=== PATIENT | male | born 1935 | race Caucasian/White ===

== ENCOUNTER 2017-07-29 06:10 | Emergency (ER) | payer OTHER ==
[2017-07-29] MEDS ORDERED: predniSONE 20 MG TAB ONE (06:39)
--- NOTE | 2017-07-29 06:46 | EDPHYS ---
Physician Documentation [facility] Name: Andrea Shelby Age: 81 yrs Sex: Male : 1935 Arrival Date: 07/29/2017 Time: 06:14 Bed 18 Private MD: Jameson Heller E ED Physician Kiko Mccrary HPI: 07/29 06:49 This 81 yrs old Male presents to ER via Ambulatory with complaints of ARMS gs SWELLING. 06:49 The patient's rash thought to be caused by Dermatitis. The rash is located on the right gs base of the skull, right arm and left arm. The rash can be described as crusted, macular. Onset: The symptoms/episode began/occurred 1 week(s) ago. Associated signs and symptoms: Pertinent positives: itching. Severity of symptoms: At their worst the symptoms were moderate in the emergency department the symptoms are unchanged. The patient has experienced similar episodes in the past, several times. Historical: - Allergies: 06:24 No Known Allergies; aa1 - PMHx: 06:24 Hypertension; aa1 - PSHx: 06:24 None; aa1 - Immunization history:: Flu vaccine is up to date. - Social history:: Smoking status: Patient/guardian denies using tobacco, never smoked. ROS: 06:49 All other systems are negative. gs Exam: 06:49 Head/Face: Normocephalic, atraumatic. Eyes: Pupils equal round and reactive to light, gs extra-ocular motions intact. Lids and lashes normal. Conjunctiva and sclera are non-icteric and not injected. Cornea within normal limits. Periorbital areas with no swelling, redness, or edema. ENT: Nares patent. No nasal discharge, no septal abnormalities noted. Tympanic membranes are normal and external auditory canals are clear. Oropharynx with no redness, swelling, or masses, exudates, or evidence of obstruction, uvula midline. Mucous membranes moist. Neck: Trachea midline, no thyromegaly or masses palpated, and no cervical lymphadenopathy. Supple, full range of motion without nuchal rigidity, or vertebral point tenderness. No Meningismus. Chest/axilla: Normal chest wall appearance and motion. Nontender with no deformity. No lesions are appreciated. Cardiovascular: Regular rate and rhythm with a normal S1 and S2. No gallops, murmurs, or rubs. Normal PMI, no JVD. No pulse deficits. Respiratory: Lungs have equal breath sounds bilaterally, clear to auscultation and percussion. No rales, rhonchi or wheezes noted. No increased work of breathing, no retractions or nasal flaring. Abdomen/GI: Soft, non-tender, with normal bowel sounds. No distension or tympany. No guarding or rebound. No evidence of tenderness throughout. Back: No spinal tenderness. No costovertebral tenderness. Full range of motion. 06:49 MS/ Extremity: Pulses equal, no cyanosis. Neurovascular intact. Full, normal range of motion. Neuro: Awake and alert, GCS 15, oriented to person, place, time, and situation. Cranial nerves II-XII grossly intact. Motor strength 5/5 in all extremities. Sensory grossly intact. Cerebellar exam normal. Normal gait. 06:49 Constitutional: The patient appears alert, awake. 06:49 Skin: rash can be described as erythematous, macular, contact dermatitis, on the left arm and right arm and scalp. Vital Signs: 06:24 BP 157 / 93; Pulse 65; Resp 18; Temp 97.7; Pulse Ox 97% on R/A; Weight 72.57 kg; Height aa1 5 ft. 8 in. (172.72 cm); Pain 0/10; 06:27 BP 157 / 93; Pulse 64; Resp 14; Pulse Ox 97% ; bp 06:24 Body Mass Index 24.33 (72.57 kg, 172.72 cm) aa1 MDM: 06:34 Patient medically screened. 06:49 Differential diagnosis: allergic reaction, contact derm. Data reviewed: vital signs, nurses notes. Response to treatment: the patient's symptoms have mildly improved after treatment. Administered Medications: 06:42 Drug: predniSONE 40 mg Route: PO; bp 06:42 Follow up: Response: No adverse reaction bp Disposition: 07/29/17 06:45 Discharged to Home. Impression: Irritant contact dermatitis. - Condition is Stable. - Discharge Instructions: Contact Dermatitis. - Prescriptions for Prednisone 20 mg Oral Tablet - take 1 tablet by ORAL route once daily for 5 days; 5 tablet. Zyrtec 10 mg Oral Tablet - take 1 tablet by ORAL route once daily As needed; 20 tablet. Triamcinolone Acetonide 0.5 % Topical Cream - apply 1 application by TOPICAL route 2 times per day As needed; 60 gram. - Medication Reconciliation Form, Thank You Letter, Antibiotic Education, Prescription Opioid Use form. - Follow up: Private Physician; When: 2 - 3 days; Reason: Re-evaluation by your physician. Signatures: Renata Shaw RN RN aa1 Kiko Mccrary MD MD gs Preston Macias RN RN bp Corrections: (The following items were deleted from the chart) 07:00 06:45 07/29/2017 06:45 Discharged to Home. Impression: Irritant contact dermatitis. bp Condition is Stable. Forms are Medication Reconciliation Form, Thank You Letter, Antibiotic Education, Prescription Opioid Use. Follow up: Private Physician; When: 2 - 3 days; Reason: Re-evaluation by your physician. gs
--- NOTE | 2017-07-29 06:46 | ER ---
Nurse's Notes [facility] Name: Andrea Shelby Age: 81 yrs Sex: Male : 1935 Arrival Date: 07/29/2017 Time: 06:14 Bed 18 Private MD: Jameson Heller E Diagnosis: Irritant contact dermatitis Presentation: 07/29 06:22 Presenting complaint: Patient states: redness, swelling and itching to BUE x 2 days. aa1 Transition of care: patient was not received from another setting of care. Onset of symptoms was July 27, 2017. Initial Sepsis Screen: Does the patient meet any 2 criteria? No. Patient's initial sepsis screen is negative. Does the patient have a suspected source of infection? No. Patient's initial sepsis screen is negative. Care prior to arrival: None. 06:22 Method Of Arrival: Ambulatory aa1 06:22 Acuity: BRANDO 4 aa1 Historical: - Allergies: 06:24 No Known Allergies; aa1 - PMHx: 06:24 Hypertension; aa1 - PSHx: 06:24 None; aa1 - Immunization history:: Flu vaccine is up to date. - Social history:: Smoking status: Patient/guardian denies using tobacco, never smoked. Screenin:32 Abuse screen: Denies threats or abuse. Denies injuries from another. Nutritional bp screening: No deficits noted. Tuberculosis screening: No symptoms or risk factors identified. Fall Risk None identified. Assessment: 06:27 General: Appears in no apparent distress. uncomfortable, Behavior is calm, cooperative, bp appropriate for age. Pain: Denies pain. Neuro: Level of Consciousness is awake, alert, obeys commands, Oriented to person, place, time, situation, Appropriate for age. Cardiovascular: No deficits noted. Respiratory: Airway is patent Respiratory effort is even, unlabored, Respiratory pattern is regular, symmetrical. GI: No signs and/or symptoms were reported involving the gastrointestinal system. : No signs and/or symptoms were reported regarding the genitourinary system. EENT: No deficits noted. Derm: Rash noted that is itchy, red, raised. Musculoskeletal: Circulation, motion, and sensation intact. Range of motion: intact in all extremities. 06:59 Reassessment: PT D/C HOME AMBULATORY, DX WITH CONTACT DERMATITIS. bp Vital Signs: 06:24 BP 157 / 93; Pulse 65; Resp 18; Temp 97.7; Pulse Ox 97% on R/A; Weight 72.57 kg; Height aa1 5 ft. 8 in. (172.72 cm); Pain 0/10; 06:27 BP 157 / 93; Pulse 64; Resp 14; Pulse Ox 97% ; bp 06:24 Body Mass Index 24.33 (72.57 kg, 172.72 cm) aa1 ED Course: 06:14 Patient arrived in ED. es 06:15 Jameson Heller MD is Private Physician. es 06:18 Kiko Mccrary MD is Attending Physician. gs 06:23 Triage completed. aa1 06:24 Arm band placed on right wrist. Patient placed in an exam room, on a stretcher. aa1 06:27 Preston Macias, RN is Primary Nurse. bp 06:32 Patient has correct armband on for positive identification. bp 06:59 No provider procedures requiring assistance completed. Patient did not have IV access bp during this emergency room visit. Administered Medications: 06:42 Drug: predniSONE 40 mg Route: PO; bp 06:42 Follow up: Response: No adverse reaction bp Outcome: 06:45 Discharge ordered by . gs 06:59 Discharged to home ambulatory. bp 06:59 Condition: stable 06:59 Discharge instructions given to patient, Instructed on discharge instructions, follow up and referral plans. medication usage, Demonstrated understanding of instructions, follow-up care, medications, Prescriptions given X 3. 07:00 Patient left the ED. bp Signatures: Renata Shaw RN RN aa1 Cristina Perla Kiko Mccrary MD MD Preston Macias, RN RN bp
== END 2017-07-29 07:00 | disposition home or self-care (01) ==
LOC: ER 06:10
DX: L24.9 Irritant contact dermatitis, unspecified cause (principal); I10 Essential (primary) hypertension
CPT/HCPCS: 99283; J7512

== ENCOUNTER 2017-11-27 13:02 | Emergency (ER) | payer OTHER ==
--- NOTE | 2017-11-27 14:32 | RAD REPORT ---
EXAM DESCRIPTION: RAD - Chest Single View - 11/27/2017 2:26 pm CLINICAL HISTORY: COUGH Chest pain. COMPARISON: No comparisons FINDINGS: Portable technique limits examination quality. A small ill-defined infiltrate is suspected left lung base suggesting pneumonia. Trace left pleural f luid is present. The heart is normal in size. No displaced fractures. IMPRESSION: Left lower lobe pneumonia.
--- NOTE | 2017-11-27 14:38 | RAD REPORT ---
EXAM DESCRIPTION: CT - Head Brain Wo Cont - 11/27/2017 2:30 pm CLINICAL HISTORY: Fever;Headache COMPARISON: No comparisons TECHNIQUE: All CT scans are performed using dose optimization technique as appropriate and may inclu de automated exposure control or mA/KV adjustment according to patient size. FINDINGS: No intracranial hemorrhage, hydrocephalus or extra-axial fluid collection.Mild generalized brain atrophy is present with mild periventricular and deep white matter chronic microvascular ische gina changes.No areas of brain edema or evidence of midline shift. The paranasal sinuses and mastoids are clear. The calvarium is intact. IMPRESSION: No acute intracranial abnormality.
[2017-11-27] MEDS ORDERED: NA CHLORIDE 0.9% 1,000 ML ONE (14:40)
[2017-11-27 15:12] LABS: Absolute Monocytes 1.2 K/uL (0.1-1.3); Absolute Neutrophil 8.5 K/uL (1.8-8.0); Basophils % 0.1 % (0-1.3); Lymphocytes % 9.2 % (15.3-44.8); MCH 33.4 pg (27.0-35.0); MCV 96.9 fL (80-100); MPV 10.1 fL (7.6-11.3); Monocytes % 11.3 % (3.3-12.3); RBC Red Blood Cell Count 4.23 M/uL (4.33-5.43)
[2017-11-27 15:23] LABS: Urine Blood NEGATIVE (NEG); Urine Glucose NEGATIVE (NEG); Urine Protein NEGATIVE (NEG); Urine pH 5.5 (5.0-7.0)
[2017-11-27 15:29] LABS: Protime INR 1.08
[2017-11-27 15:31] LABS: ALT/SGPT 18 U/L (12-78); AST/SGOT 20 U/L (15-37); Albumin 3.3 g/dL (3.4-5.0); Alkaline Phosphatase 70 U/L (45-117); BUN Blood Urea Nitrogen 13 mg/dL (7-18); Bicarbonate 25 mmol/L (21-32); Bilirubin Direct 0.4 mg/dL (0-0.2); CKMB Creatine Kinase MB < 1.0 ng/mL (0.3-3.6); Creatine Phosphokinase 227 U/L (39-308); Glucose Level 137 mg/dL (74-106); Lipase 89 U/L (73-393); Magnesium 2.4 mg/dL (1.8-2.4); NT PRO-BNP 439 pg/mL (<450); Potassium 3.9 mmol/L (3.5-5.1); Protein, Total 7.2 g/dL (6.4-8.2); Sodium Level 132 mmol/L (136-145); Troponin (Emerg Dept Use Only) < 0.02 ng/mL (0.0-0.045)
[2017-11-27] MEDS ORDERED: AZITHROMYCIN 500 MG/250 ML BAG ONE (16:44)
[2017-11-27] MEDS ORDERED: AZITHROMYCIN IV 500 MG in NA CHLORIDE 0.9% 250 ML IVPB ONE (17:00)
[2017-11-27] MEDS ORDERED: CEFTRIAXONE/SWI 2gm 2 GM/20 ML SYR IVP ONE (17:00)
--- NOTE | 2017-11-27 17:25 | ER ---
Nurse's Notes [facility] Name: Andrea Shelby Age: 81 yrs Sex: Male : 1935 Arrival Date: 11/27/2017 Time: 13:03 Bed 5 Private MD: Jameson Heller E Diagnosis: Headache;Fever, unspecified;Pneumonia due to other specified bacteria Presentation: 11/27 13:26 Presenting complaint: Patient states: has had sinus headache, fever, nausea all iw weekend, today temp was up to 101.7, took ibuprofen an hour ago, denies cough, denies vomiting or diarrhea, no abd pain, no pain with urination, mild sore throat. Transition of care: patient was not received from another setting of care. Onset of symptoms was November 24, 2017. Risk Assessment: Do you want to hurt yourself or someone else? Patient reports no desire to harm self or others. Initial Sepsis Screen: Does the patient meet any 2 criteria? No. Patient's initial sepsis screen is negative. Does the patient have a suspected source of infection? No. Patient's initial sepsis screen is negative. Care prior to arrival: Medication(s) given: Motrin. 13:26 Method Of Arrival: Ambulatory iw 13:26 Acuity: BRANDO 3 iw Historical: - Allergies: 13:28 NKA; iw - Home Meds: 13:30 tamsulosin 0.4 mg oral cp24 1 cap once daily [Active]; Zocor Oral once daily [Active]; iw - PMHx: 13:28 Hypertension; iw - PSHx: 13:30 skin cancer removal from face; iw - Immunization history:: Adult Immunizations up to date. - Social history:: Smoking status: Patient/guardian denies using tobacco. - Ebola Screening: : Patient negative for fever greater than or equal to 101.5 degrees Fahrenheit, and additional compatible Ebola Virus Disease symptoms Patient denies exposure to infectious person Patient denies travel to an Ebola-affected area in the 21 days before illness onset No symptoms or risks identified at this time. - Family history:: not pertinent. Screenin:47 Abuse screen: Denies threats or abuse. Denies injuries from another. Nutritional ss screening: No deficits noted. Tuberculosis screening: Never had TB. Fall Risk None identified. Assessment: 13:47 General: Appears in no apparent distress. comfortable, Behavior is calm, cooperative, ss Reports chills for 12-24 hours, fever for 12-24 hours, feeling ill for 2-3 days, fatigue for 2-3 days. Pain: Complains of pain in generalized headache. 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 Cardiovascular: Heart tones S1 S2 present Capillary refill < 3 seconds is brisk in bilateral fingers Patient's skin is warm and dry. Respiratory: Airway is patent Trachea midline Respiratory effort is even, unlabored, Respiratory pattern is regular, symmetrical. Respiratory: Breath sounds are clear bilaterally. Denies cough, shortness of breath pain with respiration, pain with cough, pain with movement. GI: Bowel sounds present X 4 quads. Patient currently denies abdominal pain, diarrhea, nausea, tolerance of food. : Reports mild burning with urination. Pt reports that when he doesn't take one of his medications that the burning gets worse. EENT: Nares are clear Oral mucosa is moist. Derm: Skin is intact, is healthy with good turgor, Skin is dry, Skin is pink, warm \T\ dry. normal. Musculoskeletal: Circulation, motion, and sensation intact. Range of motion: intact in all extremities, Swelling absent. 16:27 Reassessment: Dr. Ferreira at bedside to perform initial assessment. Family at bedside. ss NAD at this time. Call light within reach . 17:31 Reassessment: Patient appears in no apparent distress at this time. Patient and/or ss family updated on plan of care and expected duration. Pain level reassessed. Patient is alert, oriented x 3, equal unlabored respirations, skin warm/dry/pink. Patient up for discharge. Awaiting for antibiotics to infuse prior to discharge as ordered. Patient denies pain at this time. Patient states feeling better. Patient states symptoms have improved. Vital Signs: 13:28 BP 158 / 88; Pulse 91; Resp 16 S; Temp 99.4(O); Pulse Ox 96% on R/A; Pain 5/10; iw 14:15 BP 140 / 81; Pulse 86; Resp 16; Pulse Ox 96% ; sv 15:45 BP 129 / 75; Pulse 81; Resp 18; sv 17:59 BP 121 / 74; Pulse 85; Resp 17; Temp 99.4(O); Pulse Ox 97% on R/A; Pain 2/10; ss ED Course: 13:03 Patient arrived in ED. sb2 13:03 Jameson Heller MD is Private Physician. sb2 13:28 Triage completed. iw 13:28 Arm band placed on. iw 13:37 Baljeet Ferreira MD is Attending Physician. hazel 13:39 EKG done, by diagnostic technologist. reviewed by Baljeet Ferreira MD. sm3 13:47 Patient has correct armband on for positive identification. Bed in low position. Call ss light in reach. 14:26 XRAY Chest (1 view) In Process Unspecified. EDMS 14:30 CT Head Brain wo Cont In Process Unspecified. EDMS 14:45 Denice Wright, NADINE is Primary Nurse. ss 17:11 Jameson Heller MD is Referral Physician. hazel 18:06 No provider procedures requiring assistance completed. IV discontinued, intact, ss bleeding controlled, No redness/swelling at site. Pressure dressing applied. Administered Medications: 14:46 Drug: NS 0.9% 1000 ml Route: IV; Rate: 1 bolus; Site: right antecubital; ss 15:50 Follow up: IV Status: Completed infusion; IV Intake: 1000ml ss 16:42 Drug: Zithromax 500 mg Route: IVPB; Infused Over: 1 hrs; Site: right antecubital; ss 17:57 Follow up: IV Status: Completed infusion; IV Intake: 250ml ss 16:58 Not Given (Other Intervention Used): Rocephin - (cefTRIAXone) 2 grams IVPB once over 30 ss mins; (mix in 100 mL NS) 17:57 Drug: Rocephin 2 grams Route: IV; Rate: calculated rate; Site: right antecubital; ss 18:06 Follow up: IV Status: Completed infusion ss 18:06 Drug: Tylenol 650 mg Route: PO; ss 18:06 Follow up: Response: Medication administered at discharge. ss Intake: 15:50 IV: 1000ml; Total: 1000ml. ss 17:57 IV: 250ml; Total: 1250ml. ss Outcome: 17:11 Discharge ordered by . hazel 18:06 Discharged to home ambulatory, with family. ss 18:06 Condition: improved 18:06 Discharge instructions given to patient, family, Instructed on discharge instructions, follow up and referral plans. medication usage, Demonstrated understanding of instructions, follow-up care, medications, Prescriptions given X 1. 18:07 Patient left the ED. ss Signatures: Dispatcher [employer] Jovanna Guido, RN Baljeet Loreod MD MD cha Williams, Irene, RN RN iw Smirch, Shelby, RN RN ss Billeau, Sheri 2 Susana Watson 3
--- NOTE | 2017-11-27 17:26 | EDPHYS ---
Physician Documentation [facility] Name: Andrea Shelby Age: 81 yrs Sex: Male : 1935 Arrival Date: 11/27/2017 Time: 13:03 Bed 5 Private MD: Jameson Heller E ED Physician Baljeet Ferreira HPI: 11/27 16:33 This 81 yrs old Male presents to ER via Ambulatory with complaints of hazel Headache, Fever. 16:33 The patient complains of pain to the forehead, left frontal area and right frontal hazel area. The patient describes the headache as aching, constant. Onset: The symptoms/episode began/occurred 3 day(s) ago. Associated signs and symptoms: The patient has no apparent associated signs or symptoms. Severity of symptoms: At its worst the pain was mild, in the emergency department the pain is unchanged. Headache History: The patient has had previous headaches and this one is similar to previous episodes. The symptoms are alleviated by remaining still. The patient has not experienced similar symptoms in the past. Historical: - Allergies: 13:28 NKA; iw - Home Meds: 13:30 tamsulosin 0.4 mg oral cp24 1 cap once daily [Active]; Zocor Oral once daily [Active]; iw - PMHx: 13:28 Hypertension; iw - PSHx: 13:30 skin cancer removal from face; iw - Immunization history:: Adult Immunizations up to date. - Social history:: Smoking status: Patient/guardian denies using tobacco. - Ebola Screening: : Patient negative for fever greater than or equal to 101.5 degrees Fahrenheit, and additional compatible Ebola Virus Disease symptoms Patient denies exposure to infectious person Patient denies travel to an Ebola-affected area in the 21 days before illness onset No symptoms or risks identified at this time. - Family history:: not pertinent. ROS: 16:33 Constitutional: Negative for fever, chills, and weight loss, Eyes: Negative for injury, hazel pain, redness, and discharge, ENT: Negative for injury, pain, and discharge, Neck: Negative for injury, pain, and swelling, Cardiovascular: Negative for chest pain, palpitations, and edema, Abdomen/GI: Negative for abdominal pain, nausea, vomiting, diarrhea, and constipation, Back: Negative for injury and pain, : Negative for injury, bleeding, discharge, and swelling, MS/Extremity: Negative for injury and deformity, Skin: Negative for injury, rash, and discoloration, Psych: Negative for depression, anxiety, suicide ideation, homicidal ideation, and hallucinations, Allergy/Immunology: Negative for hives, rash, and allergies, Endocrine: Negative for neck swelling, polydipsia, polyuria, polyphagia, and marked weight changes. 16:33 Neuro: Positive for headache, weakness. Exam: 16:33 Head/Face: Normocephalic, atraumatic. Eyes: Pupils equal round and reactive to light, hazel extra-ocular motions intact. Lids and lashes normal. Conjunctiva and sclera are non-icteric and not injected. Cornea within normal limits. Periorbital areas with no swelling, redness, or edema. ENT: Nares patent. No nasal discharge, no septal abnormalities noted. Tympanic membranes are normal and external auditory canals are clear. Oropharynx with no redness, swelling, or masses, exudates, or evidence of obstruction, uvula midline. Mucous membranes moist. Neck: Trachea midline, no thyromegaly or masses palpated, and no cervical lymphadenopathy. Supple, full range of motion without nuchal rigidity, or vertebral point tenderness. No Meningismus. Chest/axilla: Normal chest wall appearance and motion. Nontender with no deformity. No lesions are appreciated. Cardiovascular: Regular rate and rhythm with a normal S1 and S2. No gallops, murmurs, or rubs. Normal PMI, no JVD. No pulse deficits. Abdomen/GI: Soft, non-tender, with normal bowel sounds. No distension or tympany. No guarding or rebound. No evidence of tenderness throughout. Back: No spinal tenderness. No costovertebral tenderness. Full range of motion. Male : Normal genitalia with no discharge or lesions. Skin: Warm, dry with normal turgor. Normal color with no rashes, no lesions, and no evidence of cellulitis. MS/ Extremity: Pulses equal, no cyanosis. Neurovascular intact. Full, normal range of motion. Neuro: Awake and alert, GCS 15, oriented to person, place, time, and situation. Cranial nerves II-XII grossly intact. Motor strength 5/5 in all extremities. Sensory grossly intact. Cerebellar exam normal. Normal gait. Psych: Awake, alert, with orientation to person, place and time. Behavior, mood, and affect are within normal limits. 16:33 Constitutional: The patient appears febrile. 16:33 Respiratory: the patient does not display signs of respiratory distress, Respirations: normal, no acute changes, Breath sounds: rhonchi, that are mild, Respiratory rate: 18 Vital Signs: 13:28 BP 158 / 88; Pulse 91; Resp 16 S; Temp 99.4(O); Pulse Ox 96% on R/A; Pain 5/10; iw 14:15 BP 140 / 81; Pulse 86; Resp 16; Pulse Ox 96% ; sv 15:45 BP 129 / 75; Pulse 81; Resp 18; sv 17:59 BP 121 / 74; Pulse 85; Resp 17; Temp 99.4(O); Pulse Ox 97% on R/A; Pain 2/10; ss MDM: 13:[address] [facility] 16:33 Data reviewed: vital signs, nurses notes, lab test result(s), EKG, radiologic studies, [facility] CT scan, plain films. 11/27 13:59 Order name: Basic Metabolic Panel; Complete Time: 16:[address] [facility] 11/27 13:59 Order name: CBC with Diff; Complete Time: 16:[address] [facility] 11/27 13:59 Order name: Ckmb; Complete Time: 16:[address] [facility] 11/27 13:59 Order name: CPK; Complete Time: 16:[address] [facility] 11/27 13:59 Order name: LFT's; Complete Time: 16:[address] [facility] 11/27 13:59 Order name: Magnesium; Complete Time: 16:[address] [facility] 11/27 13:59 Order name: NT PRO-BNP; Complete Time: 16:[address] [facility] 11/27 13:59 Order name: PT-INR; Complete Time: 16:[address] [facility] 11/27 13:59 Order name: Ptt, Activated; Complete Time: 16:[address] [facility] 11/27 13:59 Order name: Troponin (emerg Dept Use Only); Complete Time: 16:[address] [facility] 11/27 13:59 Order name: Lipase; Complete Time: 16:[address] [facility] 11/27 13:59 Order name: Blood Culture Adult (2) [facility] 11/27 13:59 Order name: Procalcitonin [facility] 11/27 13:59 Order name: Lactate; Complete Time: 16:[address] [facility] 11/27 13:59 Order name: XRAY Chest (1 view); Complete Time: 16:[address] [facility] 11/27 13:59 Order name: EKG; Complete Time: 14:[address] [facility] 11/27 13:59 Order name: Cardiac monitoring; Complete Time: 14:[address] [facility] 11/27 13:59 Order name: EKG - Nurse/Tech; Complete Time: 14:[address] [facility] 11/27 13:59 Order name: IV Saline Lock; Complete Time: 14:[address] [facility] 11/27 13:59 Order name: Labs collected and sent; Complete Time: 14:[address] [facility] 11/27 13:59 Order name: O2 Per Protocol; Complete Time: 14:[address] [facility] 11/27 13:59 Order name: Urine Culture [facility] 11/27 13:59 Order name: CT Head Brain wo Cont; Complete Time: 16:[address] [facility] 11/27 15:11 Order name: Urine Dipstick--Ancillary (enter results); Complete Time: 16:32 11/27 16:32 Order name: Influenza Screen (a \T\ B) [facility] 11/27 13:59 Order name: O2 Sat Monitoring; Complete Time: 14:[address] [facility] 11/27 13:59 Order name: Urine Dipstick-Ancillary (obtain specimen); Complete Time: 15:[address] [facility] Administered Medications: 14:46 Drug: NS 0.9% 1000 ml Route: IV; Rate: 1 bolus; Site: right antecubital; ss 15:50 Follow up: IV Status: Completed infusion; IV Intake: 1000ml 16:42 Drug: Zithromax 500 mg Route: IVPB; Infused Over: 1 hrs; Site: right antecubital; ss 17:57 Follow up: IV Status: Completed infusion; IV Intake: 250ml 16:58 Not Given (Other Intervention Used): Rocephin - (cefTRIAXone) 2 grams IVPB once over 30 ss mins; (mix in 100 mL NS) 17:57 Drug: Rocephin 2 grams Route: IV; Rate: calculated rate; Site: right antecubital; ss 18:06 Follow up: IV Status: Completed infusion ss 18:06 Drug: Tylenol 650 mg Route: PO; ss 18:06 Follow up: Response: Medication administered at discharge. Disposition: 11/27/17 17:11 Discharged to Home. Impression: Headache, Fever, unspecified, Pneumonia due to other specified bacteria. - Condition is Stable. - Discharge Instructions: Fever, Adult, Community-Acquired Pneumonia, Adult, [id number], Fever, Adult, [id number]. - Prescriptions for Zithromax 500 mg Oral Tablet - take 1 tablet by ORAL route once daily for 5 days; 5 tablet. - Medication Reconciliation Form, Thank You Letter, Antibiotic Education, Prescription Opioid Use form. - Follow up: Jameson Heller; When: 2 - 3 days; Reason: Recheck today's complaints, Continuance of care, Re-evaluation by your physician. - Problem is new. - Symptoms have improved. Signatures: Dispatcher [employer] EDKY Baljeet Ferreira MD MD cha Williams, Irene, RN RN iw Denice Wright RN RN ss Corrections: (The following items were deleted from the chart) 18:07 17:11 11/27/2017 17:11 Discharged to Home. Impression: Headache; Fever, unspecified; ss Pneumonia due to other specified bacteria. Condition is Stable. Discharge Instructions: Fever, Adult, Community-Acquired Pneumonia, Adult, [id number], Fever, Adult, Bzan-[id number]. Prescriptions for Zithromax 500 mg Oral Tablet - take 1 tablet by ORAL route once daily for 5 days; 5 tablet. and Forms are Medication Reconciliation Form, Thank You Letter, Antibiotic Education, Prescription Opioid Use. Follow up: Jameson Heller; When: 2 - 3 days; Reason: Recheck today's complaints, Continuance of care, Re-evaluation by your physician. Problem is new. Symptoms have improved. hazel
[2017-11-27] MEDS ORDERED: ACETAMINOPHEN 325 MG TABLET ONE (18:07)
--- NOTE | 2017-11-27 19:24 | EKG ---
Test Date: 2017-11-27 Test Time: 13:33:22 [employer] Supervisor: MANISHA MEASUREMENT RESULTS: Intervals: Rate: 91 OR: 142 QRSD: 132 QT: 384 QTc: 472 [place]: P: 26 OR: 142 QRS: -37 T: -4 INTERPRETIVE STATEMENTS: Normal sinus rhythm Left axis deviation Right bundle branch block Abnormal ECG No previous ECG available for comparison Electronically Signed On 11-27-17 19:22:44 CDT by Raul Olivier
== END 2017-11-27 18:07 | disposition home or self-care (01) ==
LOC: ER 13:02
DX: J15.8 Pneumonia due to other specified bacteria (principal); R50.9 Fever, unspecified; I10 Essential (primary) hypertension; Z85.828 Personal history of other malignant neoplasm of skin
CPT/HCPCS: 36415; 70450; 71045; 80048; 80076; 81003; 82550; 82553; 83605; 83690; 83735; 83880; 84145; 84484; 85025; 85610; 85730; 87040 ×2; 87086; 87088; 87804 ×2; 93005; 96361; 96365; 96375; 99284; J0456; J0696; J7030

== ENCOUNTER 2019-12-04 09:09 | Emergency (ER) | payer OTHER ==
[2019-12-04 09:34] LABS: Absolute Lymphocytes (CBC) 1.8 K/uL (0.7-4.9); Basophils % 0.2 % (0-1.3); Hematocrit 43.3 % (39.6-49.0); Lymphocytes % 16.1 % (15.3-44.8); MPV 9.5 fL (7.6-11.3); RBC Red Blood Cell Count 4.49 M/uL (4.33-5.43)
[2019-12-04 09:53] LABS: Albumin 3.6 g/dL (3.4-5.0); Bilirubin Direct 0.4 mg/dL (0-0.2); Potassium 3.8 mmol/L (3.5-5.1); Protein, Total 7.1 g/dL (6.4-8.2)
--- NOTE | 2019-12-04 10:26 | RAD REPORT ---
EXAM DESCRIPTION: CT - Abdomen Pelvis W Contrast - 12/04/2019 10:12 am CLINICAL HISTORY: Abdominal pain COMPARISON: none. TECHNIQUE: Computed axial tomography of the abdomen pelvis was obtained. 100 cc Isovue-300 was admin istered intravenously. Oral contrast was not requested which limits evaluation of bowel. All CT scans are performed using dose optimization technique as appropriate and may include automated exposure control or mA/KV adjustment according to patient size. FINDINGS: Fatty liver. Cholelithiasis without gallbladder wall thickening The spleen, pancreas, adrenals and left kidney are unremarkable. Right renal cortical thinning perhaps secondary prior inflammation Diverticulosis without evidence of diverticulitis. Small inguinal hernias contain fat. An abnormal ap pendix is not visualized. Atherosclerotic disease. The prostate gland is moderately enlarged Mild posterior subluxation of L1 on L2 with subchondral sclerosis and vacuum phenomena. Spondylosis i nvolves lumbar spine resulting in spinal stenosis IMPRESSION: Cholelithiasis without cholecystitis
--- NOTE | 2019-12-04 10:46 | EDPHYS ---
Physician Documentation [facility] Name: Andrea Shelby Age: 83 yrs Sex: Male : 1935 Arrival Date: 12/04/2019 Time: 09:11 Bed 6 Private MD: ED Physician Oliver Andrade HPI: 12/03 09:35 This 83 yrs old Male presents to ER via Ambulatory with complaints of kdr Abdominal Pain. 09:35 The patient presents with abdominal pain in the epigastric area, in the upper abdomen. kdr Onset: The symptoms/episode began/occurred yesterday. The symptoms do not radiate. Associated signs and symptoms: Pertinent positives: nausea, Pertinent negatives: anorexia, blood in stools, chest pain, constipation, diarrhea, dysuria, fever, headache, hematuria, palpitations, shortness of breath, testicular pain, vomiting, vomiting blood. The symptoms are described as achy, burning, crampy, steady. Modifying factors: The symptoms are alleviated by nothing, the symptoms are aggravated by drinking. Severity of pain: At its worst the pain was a 10 / 10 last night, in the emergency department the pain has improved is a 1 / 10. The patient has not experienced similar symptoms in the past. The patient has not recently seen a physician. Historical: - Allergies: 09:21 NKA; ph - Home Meds: 09:21 tamsulosin 0.4 mg Oral cp24 1 cap once daily [Active]; ph - PMHx: 09:21 Hypertension; ph - PSHx: 09:21 skin cancer removal from face; ph - Immunization history:: Adult Immunizations up to date, Pneumococcal vaccine is up to date, Flu vaccine is up to date. - Social history:: Smoking status: Patient denies any tobacco usage or history of. Patient/guardian denies using alcohol. ROS: 09:35 Constitutional: Negative for fever, chills, and weight loss, Eyes: Negative for injury, kdr pain, redness, and discharge, ENT: Negative for injury, pain, and discharge, Neck: Negative for injury, pain, and swelling, Cardiovascular: Negative for chest pain, palpitations, and edema, Respiratory: Negative for shortness of breath, cough, wheezing, and pleuritic chest pain, Back: Negative for injury and pain, : Negative for injury, bleeding, discharge, and swelling, MS/Extremity: Negative for injury and deformity, Skin: Negative for injury, rash, and discoloration, Neuro: Negative for headache, weakness, numbness, tingling, and seizure activity. Psych: Negative for depression, anxiety, suicide ideation, homicidal ideation, and hallucinations, Allergy/Immunology: Negative for hives, rash, and allergies, Endocrine: Negative for neck swelling, polydipsia, polyuria, polyphagia, and marked weight changes, Hematologic/Lymphatic: Negative for swollen nodes, abnormal bleeding, and unusual bruising. 09:35 Abdomen/GI: Positive for abdominal pain, nausea, Negative for abdominal cramps, abdominal distension, anorexia, dysphagia, hematemesis, black/tarry stool, rectal pain, rectal bleeding, bowel incontinence, flatulence. Exam: 09:35 Constitutional: This is a well developed, well nourished patient who is awake, alert, kdr and in no acute distress. Head/Face: Normocephalic, atraumatic. Eyes: Pupils equal round and reactive to light, extra-ocular motions intact. Lids and lashes normal. Conjunctiva and sclera are non-icteric and not injected. Cornea within normal limits. Periorbital areas with no swelling, redness, or edema. Neck: Trachea midline, no thyromegaly or masses palpated, and no cervical lymphadenopathy. Supple, full range of motion without nuchal rigidity, or vertebral point tenderness. No Meningismus. Chest/axilla: Normal chest wall appearance and motion. Nontender with no deformity. No lesions are appreciated. Cardiovascular: Regular rate and rhythm with a normal S1 and S2. No gallops, murmurs, or rubs. Normal PMI, no JVD. No pulse deficits. Respiratory: Lungs have equal breath sounds bilaterally, clear to auscultation and percussion. No rales, rhonchi or wheezes noted. No increased work of breathing, no retractions or nasal flaring. Back: No spinal tenderness. No costovertebral tenderness. Full range of motion. Skin: Warm, dry with normal turgor. Normal color with no rashes, no lesions, and no evidence of cellulitis. MS/ Extremity: Pulses equal, no cyanosis. Neurovascular intact. Full, normal range of motion. Neuro: Awake and alert, GCS 15, oriented to person, place, time, and situation. Cranial nerves II-XII grossly intact. Motor strength 5/5 in all extremities. Sensory grossly intact. Cerebellar exam normal. Normal gait. Psych: Awake, alert, with orientation to person, place and time. Behavior, mood, and affect are within normal limits. 09:35 Abdomen/GI: Inspection: abdomen appears normal, Bowel sounds: active, all quadrants, Palpation: nontender, mild abdominal tenderness, in the epigastric area, rebound tenderness, is not appreciated. 10:49 ECG was reviewed by the Attending Physician. kdr Vital Signs: 09:19 BP 175 / 88; Pulse 72; Resp 18; Temp 98.0; Pulse Ox 99% on R/A; Weight 68.95 kg; Height ph 5 ft. 11 in. (180.34 cm); 10:15 BP 154 / 84; Pulse 71; Resp 18; Pulse Ox 99% on R/A; ph 11:18 BP 148 / 76; Pulse 68; Resp 18; Temp 98.0; Pulse Ox 98% on R/A; Pain 3/10; ph 09:19 Body Mass Index 21.20 (68.95 kg, 180.34 cm) ph MDM: 09:35 Data reviewed: vital signs, nurses notes, lab test result(s), radiologic studies. kdr Counseling: I had a detailed discussion with the patient and/or guardian regarding: the historical points, exam findings, and any diagnostic results supporting the discharge/admit diagnosis, lab results, radiology results. 10:45 Patient medically screened. kdr 12/03 09:12 Order name: Basic Metabolic Panel; Complete Time: 10:43 kdr 12/03 09:12 Order name: CBC with Diff; Complete Time: 09:43 kdr 12/03 09:12 Order name: Hepatic Function; Complete Time: 10:43 kdr 12/03 09:12 Order name: Lipase; Complete Time: 10:43 kdr 12/03 09:43 Order name: Troponin (emerg Dept Use Only) kdr 12/03 09:43 Order name: Troponin (Emerg Dept Use Only); Complete Time: 10:43 EDMS 12/03 09:12 Order name: IV Saline Lock; Complete Time: 09:28 kdr 12/03 09:12 Order name: Labs collected and sent; Complete Time: : kdr 12/03 09:43 Order name: CT Abd/Pelvis - IV Contrast Only; Complete Time: 10:43 kdr 12/03 09:43 Order name: EKG - Nurse/Tech; Complete Time: 10:35 kdr EC:49 Rate is 70 beats/min. Rhythm is regular, Sinus Rhythm with Right bundle branch block. kdr Left axis deviation noted. LA interval is normal. QRS interval is normal. QT interval is normal. No Q waves. Clinical impression: NSR w/ Non-specific ST/T Changes. Administered Medications: No medications were administered Disposition: 12/04/19 10:45 Discharged to Home. Impression: Abdominal and pelvic pain, Cholelithiasis. - Condition is Stable. - Discharge Instructions: Abdominal Pain, Adult, [id number]. - Prescriptions for Bentyl 20 mg Oral Tablet - take 1 tablet by ORAL route every 6 hours As needed As needed for cramping; 20 tablet. Zofran 4 mg Oral Tablet - take 1 tablet by ORAL route every 4-6 hours As needed; 6 tablet. - Medication Reconciliation Form, Thank You Letter form. - Follow up: Private Physician; When: 2 - 3 days; Reason: If symptoms return, Further diagnostic work-up, Recheck today's complaints, Continuance of care, Re-evaluation by your physician. - Problem is new. - Symptoms have improved. Signatures: Dispatcher [employer] EDMS Oliver Andrade MD MD kdr Coral Morejon RN RN ph Corrections: (The following items were deleted from the chart) 10:46 10:45 12/04/2019 10:45 Discharged to Home. Impression: Abdominal and pelvic pain. kdr Condition is Stable. Forms are Medication Reconciliation Form, Thank You Letter, Antibiotic Education, Prescription Opioid Use. Follow up: Private Physician; When: 2 - 3 days; Reason: If symptoms return, Further diagnostic work-up, Recheck today's complaints, Continuance of care, Re-evaluation by your physician. Problem is new. Symptoms have improved. kdr 11:21 10:46 12/04/2019 10:45 Discharged to Home. Impression: Abdominal and pelvic pain; ph Cholelithiasis. Condition is Stable. Forms are Medication Reconciliation Form, Thank You Letter, Antibiotic Education, Prescription Opioid Use. Follow up: Private Physician; When: 2 - 3 days; Reason: If symptoms return, Further diagnostic work-up, Recheck today's complaints, Continuance of care, Re-evaluation by your physician. Problem is new. Symptoms have improved. kdr
--- NOTE | 2019-12-04 10:46 | ER ---
Nurse's Notes [facility] Name: Andrea Shelby Age: 83 yrs Sex: Male : 1935 Arrival Date: 12/04/2019 Time: 09:11 Bed 6 Private MD: Diagnosis: Abdominal and pelvic pain;Cholelithiasis Presentation: 12/03 09:19 Chief complaint: Patient states: Epigastric pain that began yesterday around noon, also ph reports nausea, denies V/D or fever, states, " The pain isn't terrible now but it kept me up all night.". Coronavirus screen: Client denies travel out of the [place] in the last 14 days. Ebola Screen: No symptoms or risks identified at this time. Initial Sepsis Screen: Does the patient meet any 2 criteria? No. Patient's initial sepsis screen is negative. Does the patient have a suspected source of infection? No. Patient's initial sepsis screen is negative. Risk Assessment: Do you want to hurt yourself or someone else? Patient reports no desire to harm self or others. Onset of symptoms was December 04, 2019. 09:19 Method Of Arrival: Ambulatory ph 09:19 Acuity: BRANDO 3 ph Historical: - Allergies: 09:21 NKA; ph - Home Meds: : tamsulosin 0.4 mg Oral cp24 1 cap once daily [Active]; ph - PMHx: 09:21 Hypertension; ph - PSHx: 09:21 skin cancer removal from face; ph - Immunization history:: Adult Immunizations up to date, Pneumococcal vaccine is up to date, Flu vaccine is up to date. - Social history:: Smoking status: Patient denies any tobacco usage or history of. Patient/guardian denies using alcohol. Screenin: Abuse screen: Denies threats or abuse. Denies injuries from another. Nutritional ph screening: No deficits noted. Tuberculosis screening: No symptoms or risk factors identified. Fall Risk None identified. Assessment: : General: Appears in no apparent distress. comfortable, slender, well groomed, Behavior ph is calm, cooperative, appropriate for age, Denies fever, feeling ill. Pain: Complains of pain in epigastric area Pain does not radiate. Pain began 12/02. Neuro: Neuro: Level of Consciousness is awake, alert, obeys commands, Oriented to person, place, time, situation. Cardiovascular: Capillary refill < 3 seconds in bilateral fingers Patient's skin is warm and dry. Respiratory: Airway is patent Respiratory effort is even, unlabored, Respiratory pattern is regular, symmetrical. GI: Abdomen is flat, non-distended, Reports upper abdominal pain, nausea, Patient currently denies constipation, diarrhea, vomiting. Derm: Skin is intact, is healthy with good turgor, Skin is pink, warm \\T\\ dry. Musculoskeletal: Circulation, motion, and sensation intact. Range of motion: intact in all extremities. 10:15 Reassessment: Patient appears in no apparent distress at this time. Patient and/or ph family updated on plan of care and expected duration. Pain level reassessed. Patient is alert, oriented x 3, equal unlabored respirations, skin warm/dry/pink. 11:20 Reassessment: Patient appears in no apparent distress at this time. Patient and/or ph family updated on plan of care and expected duration. Pain level reassessed. Patient is alert, oriented x 3, equal unlabored respirations, skin warm/dry/pink. Pt rates pain 3/10 and denies nausea at this time, d/c home w/ prescriptions. Vital Signs: 09:19 BP 175 / 88; Pulse 72; Resp 18; Temp 98.0; Pulse Ox 99% on R/A; Weight 68.95 kg; Height ph 5 ft. 11 in. (180.34 cm); 10:15 BP 154 / 84; Pulse 71; Resp 18; Pulse Ox 99% on R/A; ph 11:18 BP 148 / 76; Pulse 68; Resp 18; Temp 98.0; Pulse Ox 98% on R/A; Pain 3/10; ph 09:19 Body Mass Index 21.20 (68.95 kg, 180.34 cm) ph ED Course: 09:11 Patient arrived in ED. as 09:12 Oliver Andrade MD is Attending Physician. kdr 09:19 Coral Morejon, NADINE is Primary Nurse. ph 09:20 Triage completed. ph 09:21 Patient has correct armband on for positive identification. Placed in gown. Bed in low ph position. Call light in reach. Side rails up X 1. Pulse ox on. NIBP on. Door closed. Noise minimized. Warm blanket given. 09:22 Arm band placed on Patient placed in an exam room, on a stretcher. ph 09:24 Initial lab(s) drawn, by me, sent to lab. Inserted saline lock: 20 gauge in right 3 antecubital area, using aseptic technique. Blood collected. 10:12 CT Abd/Pelvis - IV Contrast Only In Process Unspecified. EDMS 10:26 EKG done, by ED staff, reviewed by Oliver Andrade MD. formerly [facility] 11:20 No provider procedures requiring assistance completed. IV discontinued, intact, ph bleeding controlled, No redness/swelling at site. Pressure dressing applied. Administered Medications: No medications were administered Outcome: 10:45 Discharge ordered by . kdr 11:21 Discharged to home ambulatory. ph 11:21 Condition: good 11:21 Discharge instructions given to patient, Instructed on discharge instructions, follow up and referral plans. medication usage, Demonstrated understanding of instructions, follow-up care, medications, Prescriptions given X 2. 11:21 Patient left the ED. ph Signatures: Dispatcher [employer] EDNC Oliver Andrade MD MD kdr Martinez, Amelia as Hall, Patricia, RN RN Yeny Rivera formerly [facility]
[2019-12-04 11:27] VITALS: TEMP 98
[2019-12-04 11:30] VITALS: BP 148/76; O2SAT 98
== END 2019-12-04 11:21 | disposition home or self-care (01) ==
LOC: ER 09:09
DX: K80.20 Calculus of gallbladder without cholecystitis without obstruction (principal); I10 Essential (primary) hypertension; Z85.828 Personal history of other malignant neoplasm of skin
CPT/HCPCS: 85025; 80048; 36415; 80076; 84484; 83690; 74177; Q9967; 93005

== ENCOUNTER 2020-07-27 06:05 | Emergency (ER) | payer OTHER ==
--- NOTE | 2020-07-27 09:15 | EDPHYS ---
Physician Documentation [facility] Name: Andrea Shelby Age: 84 yrs Sex: Male : 1935 Arrival Date: 07/27/2020 Time: 06:08 Bed 16 Private MD: Jameson Heller E ED Physician Ritika Duong HPI: 07/27 09:09 This 84 yrs old Male presents to ER via Ambulatory with complaints of Sore ma2 Throat. 09:09 Onset: The symptoms/episode began/occurred gradually, 2 day(s) ago. Severity of ma2 symptoms: At their worst the symptoms were mild, in the emergency department the symptoms are unchanged. The patient has experienced similar episodes in the past. Historical: - Allergies: 06:50 NKA; iw - PMHx: 06:50 Hypertension; iw - PSHx: 06:50 skin cancer removal from face; iw - Immunization history:: Client reports receiving the 2nd dose of the Covid vaccine. - Social history:: Smoking status: Patient denies any tobacco usage or history of. - Family history:: not pertinent. ROS: 09:09 Constitutional: Negative for fever, chills, and weight loss. ma2 09:09 All other systems are negative. Exam: 09:09 Constitutional: This is a well developed, well nourished patient who is awake, alert, ma2 and in no acute distress. Head/Face: Normocephalic, atraumatic. Eyes: Pupils equal round and reactive to light, extra-ocular motions intact. Lids and lashes normal. Conjunctiva and sclera are non-icteric and not injected. Cornea within normal limits. Periorbital areas with no swelling, redness, or edema. ENT: red oropharynx, otherwise Nares patent. No nasal discharge, no septal abnormalities noted. Tympanic membranes are normal and external auditory canals are clear. Oropharynx with no redness, swelling, or masses, exudates, or evidence of obstruction, uvula midline. Mucous membranes moist. Neck: Trachea midline, no thyromegaly or masses palpated, and no cervical lymphadenopathy. Supple, full range of motion without nuchal rigidity, or vertebral point tenderness. No Meningismus. Chest/axilla: Normal chest wall appearance and motion. Nontender with no deformity. No lesions are appreciated. Cardiovascular: Regular rate and rhythm with a normal S1 and S2. No gallops, murmurs, or rubs. Normal PMI, no JVD. No pulse deficits. Respiratory: Lungs have equal breath sounds bilaterally, clear to auscultation and percussion. No rales, rhonchi or wheezes noted. No increased work of breathing, no retractions or nasal flaring. Abdomen/GI: Soft, non-tender, with normal bowel sounds. No distension or tympany. No guarding or rebound. No evidence of tenderness throughout. Vital Signs: 06:48 BP 118 / 87; Pulse 99; Resp 18; Temp 98.6; Pulse Ox 98% ; Weight 68.04 kg; Height 5 ft. iw 9 in. (175.26 cm); 08:00 BP 146 / 90; Pulse 93; Resp 16; Pulse Ox 97% ; bp 06:48 Body Mass Index 22.15 (68.04 kg, 175.26 cm) iw MDM: 08:01 Patient medically screened. ma2 09:09 Differential diagnosis: Allergic rhinitis, pharyngitis, upper respiratory infection, ma2 viral syndrome. Data reviewed: vital signs, nurses notes. Counseling: I had a detailed discussion with the patient and/or guardian regarding: the historical points, exam findings, and any diagnostic results supporting the discharge/admit diagnosis, the presence of at least one elevated blood pressure reading (>120/80) during this emergency department visit, the need for outpatient follow up. Response to treatment: the patient's symptoms have markedly improved after treatment. 07/27 06:50 Order name: Strep; Complete Time: 07:53 iw 07/27 07:37 Order name: Throat Culture EDMS Administered Medications: No medications were administered Disposition: 07/27/20 09:15 Discharged to Home. Impression: Acute pharyngitis. - Condition is Stable. - Discharge Instructions: Pharyngitis. - Prescriptions for Zithromax Z- Charles 250 mg Oral Tablet - take 1 tablet by ORAL route as directed for 5 days Day 1 - take two (2) tablets one time. Day 2, 3, 4 , 5 take one (1) tablet once daily.; 6 tablet. Prednisone 20 mg Oral Tablet - take 2 tablet by ORAL route once daily for 5 days; 10 tablet. - Medication Reconciliation Form, Thank You Letter, Antibiotic Education, Prescription Opioid Use form. - Follow up: Private Physician; When: Tomorrow; Reason: Continuance of care. Signatures: Dispatcher [employer] Monie Vick RN Ritika Gonzalez MD MD ma2 Tatiana Hsieh RN RN tr6 Corrections: (The following items were deleted from the chart) 09:42 09:15 07/27/2020 09:15 Discharged to Home. Impression: Acute pharyngitis. Condition is tr6 Stable. Discharge Instructions: Pharyngitis. Prescriptions for Zithromax Z-Charles 250 mg Oral Tablet - take 1 tablet by ORAL route as directed for 5 days Day 1 - take two (2) tablets one time. Day 2, 3, 4 , 5 take one (1) tablet once daily.; 6 tablet, Prednisone 20 mg Oral Tablet - take 2 tablet by ORAL route once daily for 5 days; 10 tablet. and Forms are Medication Reconciliation Form, Thank You Letter, Antibiotic Education, Prescription Opioid Use. Follow up: Private Physician; When: Tomorrow; Reason: Continuance of care. ma2
--- NOTE | 2020-07-27 09:15 | ER ---
Nurse's Notes [facility] Name: Andrea Shelby Age: 84 yrs Sex: Male : 1935 Arrival Date: 07/27/2020 Time: 06:08 Bed 16 Private MD: Jameson Heller E Diagnosis: Acute pharyngitis Presentation: 07/27 06:48 Chief complaint: Patient states: has had sore throat, watery eyes, congestion, thought iw it was allergies but the Claritin isn't working. Coronavirus screen: Client presents with at least one sign or symptom that may indicate coronavirus-19. Ebola Screen: Patient negative for fever greater than or equal to 101.5 degrees Fahrenheit, and additional compatible Ebola Virus Disease symptoms Patient denies exposure to infectious person. Patient denies travel to an Ebola-affected area in the 21 days before illness onset. No symptoms or risks identified at this time. Initial Sepsis Screen: Does the patient meet any 2 criteria? No. Patient's initial sepsis screen is negative. Does the patient have a suspected source of infection? No. Patient's initial sepsis screen is negative. Risk Assessment: Do you want to hurt yourself or someone else? Patient reports no desire to harm self or others. Onset of symptoms was July 25, 2020. 06:48 Method Of Arrival: Ambulatory iw 06:48 Acuity: BRANDO 4 iw Triage Assessment: 08:00 General: Appears in no apparent distress. comfortable, slender, Behavior is calm, bp cooperative, appropriate for age. Pain: Denies pain. EENT: Reports SORE THROAT. Neuro: No deficits noted. Cardiovascular: No deficits noted. Respiratory: Airway is patent Respiratory pattern is regular. GI: No signs and/or symptoms were reported involving the gastrointestinal system. : No signs and/or symptoms were reported regarding the genitourinary system. Derm: No deficits noted. Musculoskeletal: No deficits noted. Historical: - Allergies: 06:50 NKA; iw - PMHx: 06:50 Hypertension; iw - PSHx: 06:50 skin cancer removal from face; iw - Immunization history:: Client reports receiving the 2nd dose of the Covid vaccine. - Social history:: Smoking status: Patient denies any tobacco usage or history of. - Family history:: not pertinent. Screenin:00 Abuse screen: Denies threats or abuse. Denies injuries from another. Nutritional bp screening: No deficits noted. Tuberculosis screening: No symptoms or risk factors identified. Fall Risk None identified. Assessment: 08:00 General: SEE TRIAGE NOTE. Respiratory: Airway is patent Respiratory effort is even, bp unlabored, Breath sounds are clear bilaterally. Vital Signs: 06:48 BP 118 / 87; Pulse 99; Resp 18; Temp 98.6; Pulse Ox 98% ; Weight 68.04 kg; Height 5 ft. iw 9 in. (175.26 cm); 08:00 BP 146 / 90; Pulse 93; Resp 16; Pulse Ox 97% ; bp 06:48 Body Mass Index 22.15 (68.04 kg, 175.26 cm) iw ED Course: 06:08 Patient arrived in ED. es 06:08 Jameson Heller MD is Private Physician. es 06:50 Triage completed. iw 08:00 Patient has correct armband on for positive identification. Bed in low position. Call bp light in reach. Side rails up X2. 08:01 Ritika Duong MD is Attending Physician. [facility] 08:08 Arm band placed on. bp 08:11 Tatiana Hsieh, RN is Primary Nurse. tr6 Administered Medications: No medications were administered Outcome: 09:15 Discharge ordered by . [facility] 09:42 Patient left the ED. tr6 Signatures: Cristina Perla Irene, NADINE MCCOY Preston Macias RN RN Ritika Duong MD MD ma2 Ramnanan, Tiffany, RN RN tr6
[2020-07-27 09:48] VITALS: TEMP 98.6
[2020-07-27 09:50] VITALS: BP 146/90; O2SAT 97
== END 2020-07-27 09:42 | disposition home or self-care (01) ==
LOC: ER 06:05
DX: J02.9 Acute pharyngitis, unspecified (principal); Z85.828 Personal history of other malignant neoplasm of skin; I10 Essential (primary) hypertension
CPT/HCPCS: 87070; 87081; 99281

== ENCOUNTER 2024-07-12 09:53 | Emergency (ER) | payer OTHER ==
--- OUTSIDE RECORDS SUMMARY | 2024-07-12 09:56 | XMS REPORT | Continuity of Care Document ---
Author Name Unknown Address [address] [place] [address] [facility] Address [address] [place] [address] Care Team Providers Care Boiler Tube Blower Name Role Phone Pcp, Pcp Primary Care Physician Hola Gardner MD Attending Clinician HOLA YI Attending Clinician Unavail able Payers Payer Name Policy Type Policy Number Effective Date Expirati on Date Source MEDICARE PART A AND B Medicare [id number] 2024 00:00:00 Social History Social Habit Start Date Stop Date Quantity Comments Source Gender identity Juma aurea Gaffney Sexual orientation [facility] Smoking Status Start Date Stop Date Source [facility] consumption [facility] Procedures Procedure Date / Time Performed Performing Clinicia n Source EMG 2024-07-10 18:18:44 Hola Yi [facility] Encounters Start Date/Time End Date/Time Encounter Type Admission Type Attending Clinicians Care Facility Care Department Encounter ID Source 2024-07-10 08:15:00 2024-07-10 09:16:24 Procedure Visit Hola Yi [id number] Raisa Gaffney 2024-07-10 08:14:12 2024-07-10 09:16:24 Outpatient HOLA YI MHEADEEL MHEOUT [id number] [facility]OUT Notes Date/Time Note Provider [id number] 18:29:21* Neurology (Routine) - Authorized Specialty Diagnoses / Procedures Referred By Erna brower Referred To Contact Neurology Diagnoses Carpal tunnel syndrome of right wrist Carpal tunnel syndrome of left wrist Procedures EMG Hola Yi MD [address] [place] [address] Phone: tel: fax: [facility] [address] [place] [address] Phone: tel: fax: Referral ID Status Reason Start Date Expiration Date V isits Requested Visits Authorized [id number] Authorized 06/26/2024 12/23/2024 1 1 [id number] 18:29:21* Hola Yi MD - 07/10/2024 8:15 AM CDT Associated Order(s): EMG Pre-Procedure Diagnose(s): Carpal tunnel syndrome of right wrist; Carpal tunnel syndrome of left wrist Post-Procedure Diagnose(s): Carpal tunnel syndrome of right wrist; Carpal tunnel syndrome of left wrist Patient ID: Andrea Scott is a 88 y.o. male. EMG Date/Time: 07/10/2024 6:18 PM Performed by: Hola Yi MD Authorized by: Hola Yi MD Indications: Indications: Hand pain, carpal tunnel Procedure specific details: Nerve conduction study of bilateral upper extremities Motor studies The right ulnar nerve demonstrates normal latency at 3.3 ms, normal amplitude at 7.3 mV at the wrist and 8.5 mV above the elbow. Conduction velocity is slightly depressed at 47.6 m/s. The left ulnar nerve demonstrates normal latency at 3.4 ms, and 7.3 mV at the wrist and 5.9 mV above the elbow. Conduction velocity is normal at 53.1 m/s. The right median nerve demonstrates prolonged latency at 5 ms, depressed amplitude at 4 mV and decreased conduction velocity study at 42.5 m/s. The left median nerve demonstrates prolonged latency at 5.5 ms, depressed amplitude at 1.8 mV and decreased conduction velocity at 42.2 m/s. Sensory studies The right ulnar ulnar nerve demonstrates normal latency at 2.7 ms, borderline amplitude at 9.1 ?V and normal conduction velocity at 51.3 m/s. The left ulnar nerve demonstrates normal latency at 2.4 ms. Borderline amplitude at 9.3 ?V and normal conduction velocity at 61.3 m/s. The right median nerve demonstrates prolonged latency at 3.4 ms, depressed amplitude at 8.7 ?V and normal conduction velocity at 50.9 m/s. The left median nerve demonstrates prolonged latency at 4.9 ms, depressed amplitude at 3 ?V and borderline conduction possibly at 49.5 m/s. Interpretation Abnormal study of bilateral median nerves, prolonged latencies, depressed amplitudes and velocities worse on the left. The above is consistent with moderate bilateral carpal tunnel syndrome worse on the left. Electromyogram of bilateral upper extremities Right upper extremity In the deltoid, bicep, extensor digitorum communis and first dorsal interosseous insertional activity was normal. There was no abnormal resting activity. Voluntary contraction demonstrated normal recruitment and a full interference pattern. Motor unit size and duration was normal. In the tricep and APB insertional activity was normal. There was no abnormal resting activity. Voluntary contraction demonstrated limited recruitment and a reduced interference pattern. Motor unit size and duration was normal. Left upper extremity In the deltoid, bicep, tricep, extensor digitorum communis and first dorsal interosseous insertional activity was normal. There was no abnormal resting activity. Voluntary contraction demonstrated normal recruitment and a full interference pattern. Motor unit size and duration was normal. In the APB insertional activity was normal. There was no abnormal resting activity. Voluntary contraction demonstrated limited recruitment and a reduced interference pattern. Motor unit size and duration was normal. Interpretation Chronic neurogenic changes in bilateral APB's consistent with a clinical diagnosis of bilateral carpal tunnel syndrome. Chronic neurogenic changes in right tricep consistent with right C7 radiculopathy Koko [id number] 18:29:21 Koko Ventura
[2024-07-12 10:47] LABS: Absolute Eosinophils 0.1 K/uL (0-0.5); Absolute Monocytes 0.8 K/uL (0.1-1.3); Basophils % 0.4 % (0-1.3); Eosinophils % 1.3 % (0-4.4); Hematocrit 41.8 % (39.6-49.0); Hemoglobin 14.8 g/dL (13.6-17.9); Lymphocytes % 16.7 % (15.3-44.8); MCHC 35.3 g/dL (32.0-36.0); MCV 96.5 fL (80-100); MPV 9.4 fL (7.6-11.3); Monocytes % 13.9 % (3.3-12.3); Neutrophils % 67.7 % (41.7-73.7); Nucleated Red Blood Cells % 0.1 % (0-0); Platelets 155 thou/uL (152-406); RBC Red Blood Cell Count 4.34 M/uL (4.33-5.43); Red Cell Distribution Width 13.4 % (12.1-15.2)
[2024-07-12 11:05] LABS: Albumin 3.5 g/dL (3.4-5.0); Albumin/Globulin Ratio 1.1 (1.1-1.8); Anion Gap 7.7 mEq/L (5.0-15.0); Bilirubin Direct 0.3 mg/dL (0-0.2); Bilirubin Indirect, Calculated 0.9 mg/dL (0.2-0.8); Bilirubin Total 1.2 mg/dL (0.2-1.0); Globulin 3.2 g/dL (2.3-3.5); Potassium 3.7 mEq/L (3.5-5.1); Protein, Total 6.7 g/dL (6.4-8.2); Troponin High Sensitivity 10.2 pg/mL (<58.9)
--- NOTE | 2024-07-12 11:24 | RAD REPORT ---
EXAM: Chest Single View HISTORY: 88 years Male chest pain COMPARISON: 11/27/2017 FINDINGS: LUNGS/PLEURA: The lungs are clear. No pleural effusions or pneumothorax. No pulmonary edema. Elevated right hemidiaphragm versus eventration which is chronic. CARDIAC/MEDIASTINUM: Stable size and configuration. UPPER ABDOMEN: No significant abnormality. BONES: No acute abnormality. LINES/TUBES/OTHER: N/A IMPRESSION: No evidence of acute cardiopulmonary disease.
[2024-07-12 11:27] LABS: SARS-CoV-2 Antigen Rapid Res Negative (Negative)
--- NOTE | 2024-07-12 12:18 | ER ---
Nurse's Notes [facility] Name: Andrea Shelby Age: 88 yrs Sex: Male : 1935 Arrival Date: 07/12/2024 Time: 09:53 Bed 13 Private MD: Diagnosis: Cough;Acute upper respiratory infection, unspecified Presentation: 07/12 10:03 Chief complaint: Patient states: Cough, congestion, runny nose x 1 week, chest is sore jl7 when coughing, denies fever. Coronavirus screen: At this time, the client does not indicate any symptoms associated with coronavirus-19. Ebola Screen: No symptoms or risks identified at this time. Initial Sepsis Screen: Does the patient meet any 2 criteria? No. Patient's initial sepsis screen is negative. Does the patient have a suspected source of infection? No. Patient's initial sepsis screen is negative. Risk Assessment: Do you want to hurt yourself or someone else? Patient reports no desire to harm self or others. Onset of symptoms was July 05, 2024. 10:03 Method Of Arrival: Ambulatory jl7 10:03 Acuity: BRANDO 3 jl7 Triage Assessment: 10:04 General: Appears in no apparent distress. uncomfortable, Behavior is calm, cooperative, jl7 appropriate for age. Pain: Denies pain. Cardiovascular: Patient's skin is warm and dry. Historical: - Allergies: 10:04 NKA; jl7 - PMHx: 10:04 Hypertension; jl7 - Immunization history:: Adult Immunizations unknown. - Infectious Disease History:: Denies. - Social history:: Smoking status: Patient denies any tobacco usage or history of. Screenin:13 [facility] ED Fall Risk Assessment (Adult) History of falling in the last 3 months, cm10 including since admission No falls in past 3 months (0 pts) Confusion or Disorientation No (0 pts) Intoxicated or Sedated No (0 pts) Impaired Gait No (0 pts) Mobility Assist Device Used No (0 pt) Altered Elimination No (0 pt) Score/Fall Risk Level 0 - 2 = Low Risk Oriented to surroundings, Maintained a safe environment, Hourly rounding (assess needs \T\ fall precautionary measures) done. Abuse screen: Denies threats or abuse. Denies injuries from another. Nutritional screening: No deficits noted. Tuberculosis screening: No symptoms or risk factors identified. Assessment: 10:14 General: Appears in no apparent distress. comfortable, Behavior is calm, cooperative, cm10 appropriate for age. Pain: Complains of pain in chest Pain does not radiate. Pain currently is 0 out of 10 on a pain scale. Pain began suddenly. Neuro: No deficits noted. Level of Consciousness is awake, alert, obeys commands, Oriented to person, place, time, situation, Appropriate for age. Respiratory: No deficits noted. Reports cough that is Airway is patent Respiratory effort is even, unlabored, Respiratory pattern is regular, symmetrical. 12:00 Reassessment: Patient appears in no apparent distress at this time. Patient and/or cm10 family updated on plan of care and expected duration. Pain level reassessed. Patient is alert, oriented x 3, equal unlabored respirations, skin warm/dry/pink. Vital Signs: 10:03 BP 168 / 99; Pulse 105; Resp 17; Pulse Ox 98% ; jl7 11:00 BP 144 / 97; Pulse 93; Resp 15; Pulse Ox 97% on R/A; cm10 11:30 BP 147 / 98; Pulse 83; Resp 16; Pulse Ox 98% on R/A; cm10 12:00 BP 154 / 100; Pulse 92; Resp 16; Pulse Ox 100% ; cm10 12:30 BP 156 / 101; Pulse 85; Resp 15; Pulse Ox 99% on R/A; cm10 ED Course: 09:56 Patient arrived in ED. mr 09:57 Vicenta Hernandez MD is Attending Physician. gb1 09:59 Attending Physician role handed off by Vicenta Hernandez MD tw7 09:59 Nelson Downey MD is Attending Physician. tw7 09:59 Iesha Briones, NADINE is Primary Nurse. cm10 10:04 Triage completed. jl7 10:04 Arm band placed on right wrist. jl7 10:12 Inserted saline lock: 20 gauge in right antecubital area, using aseptic technique. ap3 Blood collected. Flushed with 10 mL NS. 10:12 EKG done, by ED staff, reviewed by Nelson Downey MD. Patient maintains SpO2 cm10 saturation greater than 95% on room air. 10:13 Patient has correct armband on for positive identification. Placed in gown. Bed in low cm10 position. Call light in reach. Side rails up X2. Provided Education on: ER process and procedures. Client placed on continuous cardiac and pulse oximetry monitoring. NIBP monitoring applied. secured entrance monitor on. 10:14 Initial lab(s) drawn, by ED staff, sent to lab. Flu and/or RSV swab sent to lab. cm10 11:16 Chest Single View In Process Unspecified. EDMS 12:53 No provider procedures requiring assistance completed. IV discontinued, intact, cm10 bleeding controlled, No redness/swelling at site. Pressure dressing applied. Administered Medications: No medications were administered Medication: 10:13 VIS not applicable for this client. cm10 Outcome: 12:18 Discharge ordered by . tw7 12:53 Discharged to home ambulatory, cm10 12:53 Condition: good 12:53 Discharge instructions given to patient, Instructed on discharge instructions, follow up and referral plans. medication usage, Demonstrated understanding of instructions, follow-up care, medications, Prescriptions given X 2, 12:53 Patient left the ED. cm10 Signatures: Dispatcher [employer] EDMN Archana Maher, Reg Reg BabcockEffie, RN RN jl7 Beckie Billings RN RN ap3 Iesha Briones RN RN cm10 Vicenta Hernandez MD MD gb1 Nelson Downey MD MD tw7
--- NOTE | 2024-07-12 12:18 | EDPHYS ---
Physician Documentation [facility] Name: Andrea Shelby Age: 88 yrs Sex: Male : 1935 Arrival Date: 07/12/2024 Time: 09:53 Bed 13 Private MD: ED Physician Nelson Downey HPI: 07/12 10:17 This 88 yrs old Male presents to ER via Ambulatory with complaints of Chest Pain, tw7 Cough, Congestion, Sore Throat. 10:17 88-year-old male with a past medical history of hypertension and hyperlipidemia tw7 presents to the emergency department today with complaints of cough, congestion, sore throat and pleuritic chest pain. Patient reports he been coughing for about 1 week. That the cough is nonproductive. He denies fever. He reports associated congestion of the nose and sore throat. He reports mild pleuritic chest pain only with coughing. No chest pain at rest. He denies abdominal pain, nausea, or vomiting. He does report decreased p.o. intake. He reports that he has plans for surgery in a couple days on his hand/wrist. He denies any recent hospitalizations. 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 10:17 . Historical: - Allergies: 10:04 NKA; jl7 - PMHx: 10:04 Hypertension; jl7 - Immunization history:: Adult Immunizations unknown. - Infectious Disease History:: Denies. - Social history:: Smoking status: Patient denies any tobacco usage or history of. ROS: 10:17 Constitutional: Negative for fever, chills, and weight loss, Eyes: Negative for injury, tw7 pain, redness, and discharge, ENT: Negative for injury, pain, positive for nasal congestion Neck: Negative for injury, pain, and swelling, Cardiovascular: Negative for palpitations, and edema, pleuritic chest pain Respiratory: Negative for shortness of breath, positive for cough, wheezing, and pleuritic chest pain, Abdomen/GI: Negative for abdominal pain, nausea, vomiting, diarrhea, and constipation, Back: Negative for injury and pain, : Negative for injury, bleeding, discharge, and swelling, MS/Extremity: Negative for injury and deformity, Skin: Negative for injury, rash, and discoloration, Neuro: Negative for headache, weakness, numbness, tingling, and seizure, Psych: Negative for depression, anxiety, suicide ideation, homicidal ideation, and hallucinations, Allergy/Immunology: Negative for hives, rash, and positive for allergies, 10:17 ENT: Positive for rhinorrhea, sinus congestion, sore throat, tw7 10:17 Cardiovascular: Positive for 10:17 Respiratory: Positive for cough, with no reported sputum, Exam: 10:17 Constitutional: This is a well developed, well nourished patient who is awake, alert, tw7 and in no acute distress. Head/Face: Normocephalic, atraumatic. Eyes: Pupils equal round and reactive to light, extra-ocular motions intact. Lids and lashes normal. Conjunctiva and sclera are non-icteric and not injected. Cornea within normal limits. Periorbital areas with no swelling, redness, or edema. ENT: Nares patent. No nasal discharge, no septal abnormalities noted. Tympanic membranes are normal and external auditory canals are clear. Oropharynx with no redness, swelling, or masses, exudates, or evidence of obstruction, uvula midline. Mucous membranes moist. Neck: Trachea midline, no thyromegaly or masses palpated, and no cervical lymphadenopathy. Supple, full range of motion without nuchal rigidity, or vertebral point tenderness. No Meningismus. Chest/axilla: Normal chest wall appearance and motion. Nontender with no deformity. No lesions are appreciated. Cardiovascular: Regular rate and rhythm with a normal S1 and S2. No gallops, murmurs, or rubs. Normal PMI, no JVD. No pulse deficits. Respiratory: Lungs have equal breath sounds bilaterally, clear to auscultation and percussion. No rales, rhonchi or wheezes noted. No increased work of breathing, no retractions or nasal flaring. Abdomen/GI: Soft, non-tender, with normal bowel sounds. No distension or tympany. No guarding or rebound. No evidence of tenderness throughout. Negative Burnham's. Negative McBurney's Back: No spinal tenderness. No costovertebral tenderness. Full range of motion. Skin: Warm, dry with normal turgor. Normal color with no rashes, no lesions, and no evidence of cellulitis. MS/ Extremity: Pulses equal, no cyanosis. Neurovascular intact. Full, normal range of motion. Neuro: Awake and alert, GCS 15, oriented to person, place, time, and situation. Cranial nerves II-XII grossly intact. Motor strength 5/5 in all extremities. Sensory grossly intact. Cerebellar exam normal. Normal gait. Psych: Awake, alert, with orientation to person, place and time. Behavior, mood, and affect are within normal limits. 10:17 Respiratory: Breath sounds: Coarse breath sounds bilaterally, Vital Signs: 10:03 BP 168 / 99; Pulse 105; Resp 17; Pulse Ox 98% ; jl7 11:00 BP 144 / 97; Pulse 93; Resp 15; Pulse Ox 97% on R/A; cm10 11:30 BP 147 / 98; Pulse 83; Resp 16; Pulse Ox 98% on R/A; cm10 12:00 BP 154 / 100; Pulse 92; Resp 16; Pulse Ox 100% ; cm10 12:30 BP 156 / 101; Pulse 85; Resp 15; Pulse Ox 99% on R/A; cm10 MDM: 09:59 Medical Screening Exam initiated tw7 12:06 Data reviewed: vital signs, nurses notes, lab test result(s), EKG, radiologic studies. tw7 ED course: . 12:16 ED course: Lab work performed in the ED shows normal electrolytes. Creatinine of 1.12. tw7 Likely mild CKD. No leukocytosis. Normal hemoglobin normal liver function studies. Mild elevation of bilirubin the patient has no abdominal pain. EKG is without ischemic changes. COVID is negative. Troponin is negative. BNP is negative. Chest x-ray shows no evidence of acute cardiopulmonary abnormality, per my independent interpretation. Patient's presentation is consistent with upper respiratory tract infection. Patient's heart rate improved in the ED without intervention. I considered but not suspect ACS, patient initially reported pleuritic chest pain, but now denies chest pain. Patient is afebrile and well-appearing. I considered but do not suspect sepsis. Patient will be discharged on azithromycin , prescribed inhaler. Patient reports previously being diagnosed with hypertension but is no longer taking antihypertensive medication. Patient instructed follow-up with his primary care doctor and to check his own blood pressure frequently. Patient will be discharged, patient reports understanding and agreement with this plan, reports to return to ED if anything worsens, reports he will follow-up with his primary care doctor.. 07/12 10:39 Order name: Basic Metabolic Panel; Complete Time: 11:27 EDMS 07/12 11:28 Interpretation: Within normal limits. tw7 07/12 10:39 Order name: CBC with Automated Diff; Complete Time: 11:27 EDMS 07/12 11:27 Interpretation: Within normal limits. 7 07/12 10:39 Order name: Liver (Hepatic) Function; Complete Time: 11:27 EDMS 07/12 10:39 Order name: NT PRO-BNP; Complete Time: 11:27 EDMS 07/12 11:28 Interpretation: Within normal limits. tw7 07/12 10:39 Order name: SARS-COV-2 Antigen Rapid; Complete Time: 11:29 EDMS 07/12 10:39 Order name: Troponin High Sensitivity; Complete Time: 11:27 EDMS 07/12 10:39 Order name: Chest Single View; Complete Time: 11:27 EDMS 07/12 10:39 Order name: EKG Electrocardiogram EDLA 07/12 10:16 Order name: Cardiac monitoring; Complete Time: 10:18 tw7 07/12 10:16 Order name: EKG - Nurse/Tech; Complete Time: 10:18 tw7 07/12 10:16 Order name: IV Saline Lock; Complete Time: 10:18 tw7 07/12 10:16 Order name: Labs collected and sent; Complete Time: 10:18 tw7 07/12 10:16 Order name: O2 Per Protocol; Complete Time: 10:18 tw7 07/12 10:16 Order name: O2 Sat Monitoring; Complete Time: 10:18 7 Administered Medications: No medications were administered Disposition Summary: 07/12/24 12:18 Discharge Ordered Notes: Location: Home tw7 Condition: Stable tw7 Diagnosis - Cough tw7 - Acute upper respiratory infection, unspecified tw7 Discharge Instructions: - Discharge Summary Sheet tw7 - Upper Respiratory Infection, Adult tw7 - Cough, Adult, [id number] tw7 Forms: - Medication Reconciliation Form tw7 - Antibiotic Education tw7 - Prescription Opioid Use tw7 - Patient Portal Instructions 7 - Leadership Thank You Letter tw7 Prescriptions: - ProAir RespiClick 90 mcg/actuation Inhalation Aerosol Powder, Breath Activated - administer 1 inhalation INHALATION route every 4 to 6 hours as needed for tw7 shortness of breath or wheezing; 1 Applicator; Refills: 0, Product Selection Permitted - Zithromax Z-Charles 250 mg Oral Tablet - take 1 tablet ORAL route as directed for 5 days Day 1 - take two (2) tablets tw one time. Day 2, 3, 4 , 5 take one (1) tablet once daily.; 6 tablet; Refills: 0, Product Selection Permitted Signatures: Dispatcher [employer] Effie Tapia RN RN 7 Nelson Downey MD MD [facility] Corrections: (The following items were deleted from the chart) 10:22 10:17 88-year-old male with a past medical history of hyperlipidemia presents to the [facility] emergency department today with complaints of cough, congestion, sore throat and pleuritic chest pain. Patient reports he been coughing for about 1 week. That the cough is nonproductive. He denies fever. He reports associated congestion of the nose and sore throat. He reports mild pleuritic chest pain only with coughing. No chest pain at rest. He denies abdominal pain, nausea, or vomiting. He does report decreased p.o. intake. He reports that he has plans for surgery in a couple days on his hand/wrist. He denies any recent hospitalizations. 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 [facility] 10:33 10:17 Constitutional: Negative for fever, chills, and weight loss, Eyes: Negative for tw7 injury, pain, redness, and discharge, ENT: Negative for injury, pain, positive for nasal congestion Neck: Negative for injury, pain, and swelling, Cardiovascular: Negative for palpitations, and edema, pleuritic chest pain Respiratory: Negative for shortness of breath, positive for cough, wheezing, and pleuritic chest pain, Abdomen/GI: Negative for abdominal pain, nausea, vomiting, diarrhea, and constipation, Back: Negative for injury and pain, : Negative for injury, bleeding, discharge, and swelling, MS/Extremity: Negative for injury and deformity, Skin: Negative for injury, rash, and discoloration, Neuro: Negative for headache, weakness, numbness, tingling, and seizure, Psych: Negative for depression, anxiety, suicide ideation, homicidal ideation, and hallucinations, Allergy/Immunology: Negative for hives, rash, and positive for allergies, 7
[2024-07-12 13:42] VITALS: BP 156/101; O2SAT 99
--- NOTE | 2024-07-15 12:12 | EKG ---
Test Date: 2024-07-12 Test Time: 10:06:39 [employer]: JOSEFINA MEASUREMENT RESULTS: Intervals: Rate: 100 ND: 176 QRSD: 134 QT: 374 QTc: 482 Susan: P: 49 ND: 176 QRS: -32 T: -1 INTERPRETIVE STATEMENTS: Normal sinus rhythm Left axis deviation Right bundle branch block Abnormal ECG Compared to ECG 11/30/2023 15:12:57 Left-axis deviation now present T-wave abnormality no longer present Possible ischemia no longer present Electronically Signed On 07-15-24 12:08:20 CDT by Nadir Del Angel
== END 2024-07-12 12:53 | disposition home or self-care (01) ==
LOC: ER 09:53 → SUPCPDRO 09:53 → ER 12:53
DX: J06.9 Acute upper respiratory infection, unspecified (principal); I10 Essential (primary) hypertension; Z11.52 Encounter for screening for COVID-19
CPT/HCPCS: 36415; 71045; 80048; 80076; 83880; 84484; 85025; 87426; 93005; 99284